=== PATIENT | female | born 1995 | race Caucasian/White ===

== ENCOUNTER 2022-08-31 12:12 | Outpatient (REF) | payer OTHER, SELFPAY ==
[2022-08-31 13:53] LABS: Hematocrit 40.1 % (37.0-47.0); Hemoglobin 13.6 g/dl (12.0-16.0); Mean Corpuscular HGB Conc 33.9 g/dl (31.0-35.0); Mean Corpuscular Hemoglobin 28.7 pg (27.0-33.0); Mean Corpuscular Volume 84.6 fL (80.0-98.0); Platelet Count 306 X10*3/uL (160-400); Red Blood Count 4.74 X10*6/uL (4.20-5.50); White Blood Count 8.5 X10*3/uL (4.8-10.8)
[2022-08-31 14:40] LABS: Alanine Aminotransferase 11 U/L (0-31); Albumin Level 4.5 g/dL (3.5-5.0); Alkaline Phosphatase 56 U/L (39-117); Anion Gap 15 (12-20); Aspartate Amino Transferase 17 U/L (5-31); Bilirubin Total 0.8 mg/dL (0.0-1.0); Blood Urea Nitrogen 11 mg/dL (9-16); Calcium 9.6 mg/dL (8.4-10.2); Carbon Dioxide 24 mmol/L (22-29); Chloride 105 mmol/L (96-108); Cholesterol 197 mg/dL; Estimated Glomerular Filt Rate > 60; Glucose Fasting 78 mg/dL (60-99); HDL Cholesterol 79 mg/dL; LDL Cholesterol Calculated 111 mg/dl; Potassium 4.3 mmol/L (3.3-5.1); Sodium 140 mmol/L (135-145); Total Protein 7.2 g/dL (6.5-8.0); Triglycerides 38 mg/dL
[2022-08-31 14:46] LABS: TSH reflex Free T4 1.08 uIU/mL (0.32-4.0); Vitamin D 25-OH Total 30.1 ng/mL (>30)
== END 2022-08-31 12:13 | disposition home or self-care (01) ==
LOC: HO.WFDLDS 12:12
PROVIDERS: Visit Provider Nurse Practitioner Family
DX: Z00.00 Encounter for general adult medical examination without abnormal findings (principal)
CPT/HCPCS: 36415; 80053; 80061; 82306; 84443; 85027

== ENCOUNTER 2022-11-23 09:04 | Outpatient (REF) | payer OTHER, SELFPAY ==
[2022-11-23 15:18] LABS: CT PCR NOT DETECTED (Not Detect.); NG PCR NOT DETECTED (Not Detect.)
[2022-11-24 10:53] LABS: BV Int Neg Control Negative (Negative); BV Int Pos Control Positive (Positive)
== END 2022-11-23 09:05 | disposition home or self-care (01) ==
LOC: HO.LNP 09:04
PROVIDERS: PCP Nurse Practitioner Family; Visit Provider Advanced Practice Midwife
DX: Z01.419 Encounter for gynecological examination (general) (routine) without abnormal findings (principal); F41.9 Anxiety disorder, unspecified; F43.21 Adjustment disorder with depressed mood; Z80.3 Family history of malignant neoplasm of breast; Z87.42 Personal history of other diseases of the female genital tract; Z20.2 Contact with and (suspected) exposure to infections with a predominantly sexual mode of transmission
CPT/HCPCS: 0353U; 87480; 87510; 87660; 88142

== ENCOUNTER 2023-03-16 15:37 | Outpatient (AMB) | payer SELFPAY ==
--- NOTE | 2023-03-16 15:40 | MHC.OFFVIS ---
Intake Vital Signs 03/16/23 15:44 Height 5 ft 5 in Weight 141 lb BMI 23.5 Intake Visit Reasons: consult Intake Note: LMP 01/11/23 EDC 10/18/23 9w 1d The patient agreed to use of a ophthalmic medical technician during this encounter. Scribed for DALLIN Manrique by Maria Luisa Weathers, ophthalmic medical technician, on 03/16/2023 Allergies Penicillins Allergy (Mild, Verified 03/16/23 15:45) Hives Sulfa (Sulfonamide Antibiotics) Allergy (Mild, Verified 03/16/23 15:45) Hives sulfamethoxazole [From Bactrim] Allergy (Mild, Verified 03/16/23 15:45) Hives trimethoprim [From Bactrim] Allergy (Mild, Verified 03/16/23 15:45) Hives Is last menstrual period known: Yes Last menstrual period: 01/11/23 HPI HPI Comments History of Present Illness Details She is here today for a consult. G1. happy, planned. Hx. of irregular menses, LMP 01/11/23- EDC 10/18/23, ~ 9w 1d. Admits slight fatigue and nausea when she does not eat. Denies VB or abdominal pain. Reports she has been taking PNV before conceiving. Rx PNV offered; she declines. [facility] Medical History Anxiety Asthma Depression Missed menses Positive test Seasonal allergies Surgical History H/O knee surgery History of surgery on right wrist Hx of wisdom tooth extraction Family History Mother Asthma Breast cancer No family history of mental disorder Father Hypertension Lung cancer Maternal Grandfather No family history of mental disorder Hypertension Psychiatric disorder Paternal Grandmother Diabetes Psychiatric disorder Paternal Grandfather Cardiovascular disease Social History Household Members: Family Housing: Apartment Alcohol intake: current Alcohol intake frequency: 3 or more drinks per day Patient Tobacco Use Status: Never used Tobacco e-Cigarette/Vaping Use: Never Used Substance Use Type: Marijuana Current occupational status: employed Sexual orientation: Straight/Heterosexual Gender identity: Female Female Reproductive History Menstrual Age of Menarche: 13 Date of last menstrual period: 01/11/23 Physical Exam Vital Signs: BMI result Body Mass Index 23.5 Const General: cooperative, healthy appearing, comfortable, no acute distress, well developed, alert and awake Results AMB Test Urine AMB Test Urine Positive Last Edit by CIARAN Varghese on 03/16/23 15:56 Results Reviewed Results Reviewed: Laboratory Last Values [facility] Positive 03/16/23 15:56 Assessment & Plan Assessment & Plan (1) Positive test: Code(s): Z32.01 - Encounter for test, result positive Plan: Discussed: Dietary options for . Advised to eat healthy and stay hydrated. US ordered. Follow up for results. Different care options; she opts to contact office with decision. Reviewed when to call for any excessive N/V, VB or abdominal pain. Discussed to call the service here for any emergencies. All of her questions and concerns were addressed to the best of my ability and shared decision making. She is agreeable to plan of care. (2) Missed menses: Code(s): N92.6 - Irregular menstruation, unspecified (3) Seasonal allergies: Code(s): J30.2 - Other seasonal allergic rhinitis Plan: Claritin without D for seasonal allergies. (4) Irregular menses: Code(s): N92.6 - Irregular menstruation, unspecified (5) Nausea and vomiting during prior to 22 weeks gestation: Code(s): O21.9 - Vomiting of , unspecified Orders: Orders US OB limited Today N92.6 - Irregular menstruation, unspecified, Z32.01 - Encounter for test, result positive AMB HCG Urine Test Today Z32.01 - Encounter for test, result positive Coding Level of Care Code Est Pt Level 3 (59390) Diagnoses Positive test Z32.01 Missed menses N92.6 Seasonal allergies J30.2 Irregular menses N92.6 Nausea and vomiting during prior to 22 weeks gestation O21.9
[2023-03-16 15:44] VITALS: BMI 23.5
== END 2023-03-16 16:14 | disposition home or self-care (01) ==
LOC: HO.HWS 15:37
PROVIDERS: PCP Nurse Practitioner Family; Visit Provider Advanced Practice Midwife
DX: Z32.01 Encounter for pregnancy test, result positive (principal); N92.6 Irregular menstruation, unspecified; J30.2 Other seasonal allergic rhinitis; O21.9 Vomiting of pregnancy, unspecified
CPT/HCPCS: 99213

== ENCOUNTER → 2023-03-16 15:37 | Outpatient (BNVA) | payer OTHER, SELFPAY | PROVIDERS: PCP Nurse Practitioner Family; Visit Provider Advanced Practice Midwife | DX: O21.9 Vomiting of pregnancy, unspecified (principal); O99.519 Diseases of the respiratory system complicating pregnancy, unspecified trimester; J30.2 Other seasonal allergic rhinitis; Z3A.00 Weeks of gestation of pregnancy not specified | CPT/HCPCS: 81025 ==

== ENCOUNTER 2023-03-17 14:50 | Outpatient (REF) | payer OTHER, SELFPAY ==
--- NOTE | ~2023-03-17 | US_ITS ---
EXAMINATION: US OBSTETRICAL ULTRASOUND CLINICAL INFORMATION: Positive test. COMPARISON: None available. LMP: 01/11/2023. Gestational age by maternal dates is 9 weeks and 2 days. Estimated date of delivery by maternal dates is 10/18/2023. TECHNIQUE: Ultrasound of the maternal pelvis is performed using transabdominal transducer. M-mode Doppler is also performed. FINDINGS: There is a single intrauterine gestational sac with visible yolk sac, embryo/fetus, and cardiac activity. There is no significant subchorionic hemorrhage or hematoma. HR: 165 beats per minute. CRL (crown rump length): 2.11 cm (9 weeks and 2 days +/- 4 days). CASS (estimated date of delivery): 10/18/2023 +/- 4 days. MATERNAL ADNEXA: The right maternal ovary measures 3.9 x 2.3 x 2.8 cm. The left maternal ovary measures 3.7 x 1.6 x 1.9 cm. There is no significant maternal adnexal mass. No maternal pelvic ascites. US/US OB <= 14 weeks fetus IMPRESSION: 1. Single intrauterine gestation with ultrasound gestational age of 8 weeks and 6 days +/- 4 days. 2. Estimated date of delivery is 10/21/2023 +/- 4 days. 3. No maternal adnexal mass or pelvic ascites.
== END 2023-03-17 14:51 | disposition home or self-care (01) ==
LOC: HO.US 14:50
PROVIDERS: Visit Provider Advanced Practice Midwife
DX: Z34.91 Encounter for supervision of normal pregnancy, unspecified, first trimester (principal); Z3A.09 9 weeks gestation of pregnancy
CPT/HCPCS: 76801